=== PATIENT | female | born 1945 ===

== ENCOUNTER 2018-04-24 13:19 | Outpatient (CLI) | payer MEDICARE, MEDICAID | END 2018-04-24 13:20 | disposition home or self-care (01) | LOC: C.USIC 13:20 | DX: R10.2 Pelvic and perineal pain (principal) ==

== ENCOUNTER 2018-06-29 11:37 | Outpatient (CLI) | payer MEDICARE, MEDICAID | END 2018-06-29 11:38 | disposition home or self-care (01) | LOC: C.MAMMO 11:37 | DX: Z12.31 Encounter for screening mammogram for malignant neoplasm of breast (principal) ==

== ENCOUNTER 2018-07-12 06:47 | Day surgery (SDC) | payer MEDICARE, MEDICAID ==
[2018-07-12 07:34] VITALS: BMI 23.9
[2018-07-12] MEDS ORDERED: HYDROmorphone 0.5 mg/0.5 ml ISec IVP PRN (09:43)
[2018-07-12] MEDS ORDERED: Propofol 10 mg/ml Inj (20 ML) ONE (09:58)
[2018-07-12] MEDS ORDERED: Lactated Ringer's 1,000 ML IV ONE (10:28)
[2018-07-12 11:50] VITALS: RESP 18; TEMP 97.6; O2SAT 97
[2018-07-12 12:24] VITALS: BP 133/66; PULSE 99
--- NOTE | 2018-07-19 20:12 | OP ---
PROCEDURE DATE: 07/12/2018 PREOPERATIVE DIAGNOSIS: A 73-year-old 2, para 2 with technique. POSTOPERATIVE DIAGNOSIS: A 73-year-old 2, para 2 with technique. SURGEON: Ruddy Sandoval MD ELECTRICAL INTERN: None. ANESTHESIA: General anesthesia. ANESTHESIOLOGIST: Mario Treviño MD. PROCEDURE PERFORMED: MyoSure, D and C, cystoscopy. DESCRIPTION OF PROCEDURE: After informed consent was obtained, the patient was brought into the operating room, placed on the table where general anesthesia was administered. Once the anesthesia was found to be adequate, the patient was prepped and draped in the normal sterile fashion. Examination of the no pelvic or adnexal masses. Anterior lip of the cervix was grasped with a tenaculum. Gentle dilatation of the cervix was done . Hysteroscope was introduced and found ____ on the posterior wall of the uterus. Pictures were taken and then the decision was to use the MyoSure. MyoSure was ECC was done sent to the pathology. After that tenaculum was taken out. The patient tolerated the procedure well. Lap, sponge, and instrument counts were correct x2 at the end of the case. Ruddy Sandoval MD
== END 2018-07-12 12:20 | disposition home or self-care (01) ==
LOC: C.SDS 06:47
PROVIDERS: ATTEND Obstetrics & Gynecology
DX: N85.00 Endometrial hyperplasia, unspecified (principal); N84.0 Polyp of corpus uteri
CPT/HCPCS: 58558; 88305; J1885; J2405; J2704; J3010; J7120